=== PATIENT | male | born 1945 | race Caucasian/White ===

== ENCOUNTER 2017-02-06 18:35 | Inpatient (IN) | payer MEDICARE, OTHER ==
[~2017-02-06] VITALS: Ht 162.5 cm; Wt 95.3 kg
--- NOTE | ~2017-02-06 | PR ---
[place], [place] PROGRESS NOTE NAME: EMMA HARDWICK UNIT #: [id number] ROOM: 506 DOCTOR: MELISSA DUMONT MD,JOSHUA BIRTHDATE: [birth year] DOS: 02/10/2017 The patient was seen independently with [id number] encounter. Physical examination performed. All the labs were confirmed. The note done by the medical physiologist was approved. The assessment and management and the changes in the treatment recommendations were personally made. SUBJECTIVE: The patient has been noted with some symptoms of shortness breath, still described with mild cough without any sputum expectoration. Denies symptoms of chest pain. He was continuing Solu-Medrol 60 mg q. 8 h. as ordered by the primary care physician. OBJECTIVE: VITAL SIGNS: Temperature noted normal, respiratory rate 20, heart rate 80, blood pressure 150/52 this morning. The pulse oxygen saturation was noted on 2 L nasal cannula 94% saturation. HEENT: Shows chronic obesity. NECK: Supple. CARDIOVASCULAR: S1, S2 audible. LUNGS: Noted without any wheeze or crackles. Moderate general reduction in breath sounds bilaterally. ABDOMEN: Soft, nontender. LABORATORY DATA: CMP today, glucose was noted as mildly elevated and BUN and creatinine were normal. CBC: WBC count 18.6, hemoglobin 11.7, hematocrit 36.6, platelet count was normal with 81% segmented neutrophils. IMPRESSION: Leukocytosis. The patient currently remains on high-dose corticosteroids, Solu-Medrol 40 mg q. 8 h. 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 PLAN OF MANAGEMENT: Reduce the Solu-Medrol dose to 40 mg b.i.d. from today. Monitor respiratory status. Additional treatment changes need to be made based on progression of illness. The patient is receiving intravenous vancomycin at this time. The blood culture from 02/08/2017 showed no bacterial growth. Sputum culture is not collected since the patient is not expectorating much sputum. The increase of the WBC is most likely related to the use of the high-dose corticosteroids. Reduction of the dose might result in reduction and improvement of leukocytosis. [place], [place] PROGRESS NOTE NAME: EMMA HARDWICK ACC #: [id number] UNIT #: [id number] ROOM: 506 DOCTOR: JOSHUA PAPPAS MD BIRTHDATE: [birth year] JOSHUA TORRES MD CM:PNTRANS [id number] JOSHUA DUMONT MD 02/11/17311 interface
--- NOTE | ~2017-02-06 | PR ---
[place], [place] PROGRESS NOTE NAME: EMMA HARDWICK UNIT #: [id number] ROOM: 506 DOCTOR: JOVANNY SALAMANCA DO BIRTHDATE: [birth year] DOS: 02/11/2017 SUBJECTIVE: The patient was seen and examined this morning with Dr. Torres. The patient denies of any . The patient states that his shortness of breath has been improving. PHYSICAL EXAMINATION: VITAL SIGNS: Temperature 98.8, pulse 89, respiratory rate 20, blood pressure 159/77, pulse ox 98 on 2 liters nasal cannula. HEENT: Shows no changes. NECK: Supple. CARDIOVASCULAR: S1, S2 audible. LUNGS: Mild scattered wheezes noted. No rales or rhonchi. ABDOMEN: Soft, nontender, not distended. EXTREMITIES: Shows no edema. LABORATORY DATA: White cell count of 16.8, hemoglobin of 11.7, platelet of 286 ____. BUN of 23, creatinine of 1.01. Microbiology: Blood cultures on 02/06/2017 showed gram-positive cocci in pairs and clusters. Repeat blood cultures on 02/08/2017, preliminarily shows no bacterial growth. ASSESSMENT: 1. Acute exacerbation of chronic obstructive pulmonary disease. 2. Acute tracheobronchitis. 3. Gram-positive bacteremia. 4. Tobacco abuse. TREATMENT PLAN: 1. The patient can be continued on IV antibiotics, Solu-Medrol, DuoNeb treatments. The patient can be discharged from pulmonary perspective. The patient had an echo done, which was negative for vegetation and showed grade 1 diastolic dysfunction. 2. Repeat blood cultures to date preliminary shows no growth. 3. The patient was counseled on tobacco cessation. 4. The patient should follow up outpatient with Dr. Torres in 2 weeks post-discharge. JOVANNY SALAMANCA DO [place], [place] PROGRESS NOTE NAME: EMMA HARDWICK UNIT #: [id number] ROOM: 506 DOCTOR: JOVANNY SALAMANCA DO BIRTHDATE: [birth year] JOSHUA TORRES MD CM:PNRAUL [id number] JOVANNY SALAMANCA DO 02/11/17 1104 interface
--- NOTE | ~2017-02-06 | CON ---
[place], [place] REPORT OF CONSULTATION NAME: EMMA HARDWICK [facility] #: [id number] UNIT #: [id number] ROOM: 506 DOCTOR: JOSHUA PAPPAS MD BIRTHDATE: [birth year] DOS: 02/08/2017 CONSULTATION REQUESTED BY: Hospitalist services. REASON FOR CONSULTATION: Assess the patient for COPD and other pulmonary abnormalities. HISTORY OF PRESENT ILLNESS: This is a 71-year-old white male, unknown to me from the past. He has been admitted to the hospital under the care of Hospitalist services on 02/06/2017. The patient was admitted to the hospital. The patient was noted with having symptoms of increased shortness of breath with chest congestion and copious amount of sputum expectoration at home. The sputum expectoration was described sometimes as thick and yellowish in color and other time green. He does not have any symptoms of hemoptysis with that. Wheezing for the patient was also noted. Symptoms started after acute cold-like symptoms in the beginning. The patient has taken [id number] medications and other home medication, but not noted improvement in the symptoms. He has been currently treated for acute exacerbation of COPD. REVIEW OF SYSTEMS: CONSTITUTIONAL: Fatigue and tiredness. The patient noted symptoms of fever or chills. EYES: Denies any burning, redness, or tenderness. EARS, NOSE, THROAT: No sore throat, hoarseness, otalgia, postnasal drainage or epistaxis. GASTROINTESTINAL: Denies dysphagia, nausea, vomiting, diarrhea, abdominal pain, hematemesis, or melena. GENITOURINARY: Denies dysuria, suprapubic pain, or hematuria. SKIN: Denies any lesions or rashes. MUSCULOSKELETAL: Denies any acute joint pain, redness, or tenderness. Remaining systems were reviewed with the patient, they were noted all negative. PAST MEDICAL HISTORY: 1. The patient was noted with past history of chronic obstructive pulmonary disease. 2. Moderate obesity. 3. Essential hypertension. 4. Peripheral vascular disease. 5. Diet-controlled type 2 diabetes mellitus. 6. Vitamin D deficiency. 7. History of nicotine abuse. 8. History of BPH. SOCIAL HISTORY: The patient stated he is , has 2 children. Smoking noted since his teen for this patient about 2 packs of cigarettes per day. Denies any history of alcohol use or any illicit drug use. He has worked in the [employer] for 47.5 years until longterm. PAST SURGICAL HISTORY: [place], [place] REPORT OF CONSULTATION NAME: EMMA HARDWICK UNIT #: [id number] ROOM: 506 DOCTOR: MELISSA DUMONT MD,JOSHUA BIRTHDATE: [birth year] 1. Noted peripheral artery intervention. The patient has a stent placement. 2. EGD and colonoscopy. FAMILY HISTORY: The patient's father at unknown age and history was unknown by the patient. The mother at 79 years complication related to coronary artery disease. HOME MEDICATIONS: Listed at the time of admission, the medication reconciliation were noted as use of: 1. Aspirin 81 mg p.o. daily. 2. Flovent 250 mcg inhalation one inhalation b.i.d. 3. Proscar 5 mg daily. 4. Lisinopril 20 mg p.o. daily. 5. Metoprolol 50 mg p.o. daily. 6. Omeprazole 40 mg daily. 7. Simvastatin 20 mg p.o. daily. DRUG ALLERGY: No known drug allergies. PHYSICAL EXAMINATION: GENERAL: This is a 71-year-old white male who has been currently noted without any distress at the time of the assessment. VITAL SIGNS: The patient's height recorded by the nursing staff on admission with height of 5 feet 4 inches, weight of 210 pounds. The vital signs which were recorded shows temperature noted normal in the past 48 hours, respiratory rate range between 20-22, heart rate of 85-93, blood pressure 140/62-148/84. Pulse oxygen saturation of the patient noted on 3 liters 98% saturation on admission 93% saturation room air at rest. HEENT: Examination shows chronic obesity. Neck was supple. Head was atraumatic. Decreased posterior pharyngeal space. CARDIOVASCULAR: S1, S2 is audible. LUNGS: Noted with general reduction of breath sounds with expiratory wheezing, no crackles. ABDOMEN: Soft, obese, nontender, bowel sounds present. EXTREMITIES: Shows chronic obesity without edema, clubbing, or cyanosis. CENTRAL NERVOUS SYSTEM: Cranial nerves 2-12 intact. No focal deficits. MUSCULOSKELETAL: No deformities. SKIN: Showed no lesions or rashes. LABORATORY DATA: Lactic acid on 02/06/2017 was normal. CMP of the patient on 02/06/2017 noted, glucose 121, BUN 27, creatinine was normal. AST was 41. Troponin was normal. CBC of the patient on 02/06/2017, hemoglobin 13.8, hematocrit 42.1, WBC count normal, platelet count was normal. CMP of the patient on 02/07/2017, BUN 27, creatinine was normal, glucose 158. Albumin 3.0. CBC on 02/07/2017, mild anemia, otherwise normal. CMP of the patient on 02/08/2017, glucose 185, BUN and creatinine was normal. CBC of the patient's WBC count 16.0 today, hemoglobin 11.6, hematocrit 35.1, platelet count of 276,000. The chest x-ray of the patient that was done, 2 views in the Emergency Room which was personally reviewed shows increased interstitial marking. The patient noted without any gross area of pulmonary infiltration nodules or mass [place], [place] REPORT OF CONSULTATION NAME: EMMA HARDWICK UNIT #: [id number] ROOM: 506 DOCTOR: MELISSA DUMONT MD,JOSHUA BIRTHDATE: [birth year] lesions were noted. The chest x-ray was personally reviewed. CT scan of the chest, which was done without contrast on 02/07/2017 was personally reviewed, shows evidence of subcarinal and mediastinal lymphadenopathy noted with ____ noted at 1.7 cm in the subcarinal area. Calcification of the lymph are noted in the mediastinum for this patient as well as in the carinal area. The fullness of the right hilar area was also noted may be related to lymphadenopathy or other reasons, but because of lack of contrast cannot be clearly assessed. Increased interstitial markings for the patient was noted with minimal bronchiectasis in the lower lungs. Calcified granuloma noted in the right upper lung for this patient as well. Fatty infiltration of the liver for the patient was also noted. IMPRESSION: 1. The patient has been currently admitted to the hospital noted with acute exacerbation of chronic obstructive pulmonary disease with acute bronchitis with increased interstitial markings may be related to the air trapping. Other reason for the patient was unclear. 2. Lymphadenopathy calcification, most likely to past exposure and inhalation of the silica would be considered for this patient for that reason. 3. Rule out any lymphadenopathy in the right hilar area for this patient as well. 4. Possibility of a simple silicosis involving the lung for this patient would be considered as well. 5. Gram-positive cocci bacteremia noted on 1 out of 2 culture on 02/06/2017 as gram-positive cocci in pairs and clusters with possibility of contamination would be considered. PLAN OF MANAGEMENT: Solu-Medrol will be continued 60 mg q.8 hours which was decreased from 80 mg q.8 hours today. Bronchodilators will be continued. Sputum for Gram stain and culture. Continue use of the Mucinex uses a flutter valve. If the respiratory symptoms remain persistent considered fiberoptic bronchoscopy. Discontinue the IV Zosyn for the patient is not needed. Contamination of the blood culture will be considered for the patient, if the blood culture will be noted as a contaminant, certainly the vancomycin needs to be discontinued. If the patient's other antibiotic will be discontinued certainly he will be started on oral antibiotic at this time vancomycin ____ able to give coverage for the patient's gram-positive infection. Additional treatment changes needs to be made for this patient based on progression of the illness. Thanks for allowing me to participate in the care of this patient. [place], [place] REPORT OF CONSULTATION NAME: EMMA HARDWICK UNIT #: [id number] ROOM: 506 DOCTOR: JOSHUA PAPPAS MD BIRTHDATE: [birth year] JOSHUA TORRES MD CM:CONSTR:REPORT OF CONSULTATION 1053 02/09/17 0205 interface
--- NOTE | ~2017-02-06 | PR ---
[place], [place] PROGRESS NOTE NAME: EMMA HARDWICK [facility] #: [id number] UNIT #: [id number] ROOM: 506 DOCTOR: MELISSA DUMONT MD,JOSHUA BIRTHDATE: [birth year] DOS: 02/09/2017 SUBJECTIVE: The patient has been noted comfortable at this time, resting on the bed. The patient has not been noted any symptoms of chest pain or any abdominal pain. Cough has been noted for this patient, which has been decreasing gradually. Shortness of breath was also improving, but not completely resolved. OBJECTIVE: VITAL SIGNS: Normal temperature, respiratory rate 20, heart rate 79, blood pressure 136/50. Pulse oxygen saturation of the patient noted 2 liters nasal cannula 96% saturation. HEENT: Examination shows chronic obesity. NECK: Supple. CARDIOVASCULAR: S1, S2 audible. LUNGS: Scattered wheezing, no crackles. ABDOMEN: Soft, nontender. LABORATORY DATA: CBC this morning; WBC count 17.4, hemoglobin 11.6, hematocrit 36.5, platelet count was normal. CMP of this morning; glucose 199, BUN and creatinine was normal. AST and ALT and alkaline phosphatase were all noted with mild elevation. IMPRESSION: 1. 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 Respiratory symptoms have been gradually improving. 2. Abnormal liver function testing, etiology unclear. PLAN OF TREATMENT: The patient could be discharged home if necessary on oral medications and antibiotics from pulmonary standpoint. Outpatient followup to be established t post-discharge. Tobacco cessation was addressed with the patient. JOSHUA TORRES MD CM:PNTRANS [id number] JOSHUA DUMONT MD 02/10/17 0516 interface
--- NOTE | ~2017-02-06 | PR ---
[place], [place] PROGRESS NOTE [id number] UNIT #: [id number] ROOM: 506 DOCTOR: JOVANNY SALAMANCA DO BIRTHDATE: [birth year] DOS: 02/10/2017 The patient was seen and examined this morning. The patient remains comfortable at this time. The patient denies of any chest pain or abdominal pain. The patient says that his shortness of breath is improving. PHYSICAL EXAMINATION: VITAL SIGNS: Temperature 97.9, pulse 90, respiratory rate 22, blood pressure 175/66, pulse ox 95 on 2 liters nasal cannula. HEENT: Shows no changes. NECK: Supple. CARDIOVASCULAR: S1, S2 audible. LUNGS: Mild scattered wheezes noted. No crackles or rhonchi. ABDOMEN: Soft, nontender or nondistended. LABORATORY DATA: White cell count 18.6, hemoglobin 11.7, platelets 293,000. BUN 23, creatinine 1.01. ASSESSMENT: 1. 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 2. Acute tracheobronchitis, improving. 3. Abnormal liver function tests, etiology unclear. PLAN OF TREATMENT: 1. The patient could be discharged home on oral medications and antibiotics from pulmonary standpoint. 2. Outpatient followup to establish post discharge care. 3. Tobacco cessation. JOVANNY SALAMANCA DO [place], [place] PROGRESS NOTE NAME: EMMA HARDWICK UNIT #: [id number] ROOM: 506 DOCTOR: JOVANNY SALAMANCA DO BIRTHDATE: [birth year] JOSHUA TORRES MD CM:PNTRANS [id number] JOVANNY SALAMANCA DO 02/10/17 1538 interface
--- NOTE | ~2017-02-06 | PR ---
[place], [place] PROGRESS NOTE [id number] UNIT #: [id number] ROOM: 506 DOCTOR: MELISSA DUMONT MD,JOSHUA BIRTHDATE: [birth year] DOS: 02/11/2017 The patient was independently seen and examined with [id number] encounter today. Labs were reviewed. Physical examination performed. The assessment and management for this patient personally made. The note done by the medical office representative was approved. The patient has been showing gradual reduction and improvement in the respiratory symptoms. Leukocytosis slowly improving. Blood culture was noted with microguaiac species. The patient is getting antibiotics. The patient has been currently treated for acute exacerbation of chronic obstructive pulmonary disease and acute tracheobronchitis at this time and Gram-positive bacteremia. The decision of discharge will be deferred to the primary care team. JOSHUA TORRES MD CM:PNTRANS [id number] JOSHUA DUMONT MD 02/12/17 0047 interface
[~2017-02-06 18:35] MED LIST: ASPIRIN81 M1 PO; ATENOLOL25 MG PO; CIPROFLOXACIN500 MG PO; FLOMAX0.4 MG PO; LISINOPRIL AND1 TA2 PO; OMEPRAZOLE40 MG PO; PROSCAR5 M1 PO; SIMVASTATIN20 MG PO; VENTOLIN H0.09 MG/AC INH; VICODIN 5/500 505 MG PO; VIT D PO
[2017-02-06 18:50] VITALS: BP 173/87
[2017-02-06 19:34] VITALS: BP 147/81
[2017-02-06 20:27] VITALS: BP 173/81
[2017-02-06] MEDS ORDERED: DOXYCYCLINE100 M3 PO (20:50)
[2017-02-06] MEDS ORDERED: ALBUTEROL2.5 MG/0.5 INH (20:50)
[2017-02-06] MEDS ORDERED: TESSALON PERLE100 M1 PO (20:50)
[2017-02-06] MEDS ORDERED: PREDNISONE20 M1 PO (20:50)
[2017-02-06 21:23] VITALS: BP 179/61
[2017-02-06 21:33] LABS: HEMATOCRIT 42.1 % (42.0-52.0); HEMOGLOBIN 13.8 g/dl (14.0-18.0); MEAN CELL VOLUME 100.2 fl (80.0-94.0); MEAN CORPUSCULAR HGB 32.9 pg (27.0-31.0); MEAN CORPUSCULAR HGB CONC 32.8 g/dl (33.0-37.0); MEAN PLATELET VOLUME 10.6 fl (9.6-12.3); PLATELET COUNT AUTOMATED 262 10*3/uL (130-400); RED CELL DISTRI WIDTH 13.4 % (0-14.5); WHITE BLOOD COUNT 10.5 10*3/uL (4.8-10.8)
[2017-02-06 21:49] LABS: ALBUMIN 3.5 gm/dl (3.1-4.5); ALKALINE PHOSPHATASE 161 U/L (45-117); BUN 27 mg/dl (7-24); CHLORIDE 103 mmol/L (98-107); CREATININE 1.26 mg/dL (0.70-1.30); POTASSIUM 3.9 mmol/L (3.5-5.1); SGOT/AST 41 IU/L (3-35); SGPT/ALT 63 U/L (12-78); SODIUM 141 mmol/L (136-145); TOTAL PROTEIN 8.2 gm/dL (6.4-8.2)
[2017-02-06 21:55] LABS: PLATELET SUFFICIENCY NORMAL (NORMAL); TOTAL CELLS COUNTED 100 #CELLS; TROPONIN I < 0.015 ng/ml (<0.045)
[2017-02-06 21:56] LABS: POLYCHROMASIA SLIGHT
[2017-02-06 22:35] VITALS: BP 153/68
[2017-02-07] VITALS: BP 132/76
[2017-02-07 06:19] LABS: HEMATOCRIT 40.2 % (42.0-52.0); HEMOGLOBIN 13.2 g/dl (14.0-18.0); MEAN CORPUSCULAR HGB 32.8 pg (27.0-31.0); MEAN CORPUSCULAR HGB CONC 32.8 g/dl (33.0-37.0); MEAN PLATELET VOLUME 10.5 fl (9.6-12.3); PLATELET COUNT AUTOMATED 269 10*3/uL (130-400); RED BLOOD COUNT 4.02 10*6/uL (4.50-5.90); RED CELL DISTRI WIDTH 13.1 % (0-14.5); WHITE BLOOD COUNT 10.4 10*3/uL (4.8-10.8)
[2017-02-07 06:33] LABS: ALKALINE PHOSPHATASE 132 U/L (45-117); BUN 27 mg/dl (7-24); CHLORIDE 107 mmol/L (98-107); CHOLESTEROL 188 mg/dL (<200); CREATININE 1.13 mg/dL (0.70-1.30); HDL CHOLESTEROL 30 mg/dl (40-60); LDL CHOLESTEROL 130 mg/dL (9-159); MAGNESIUM 2.1 mg/dL (1.5-2.1); PHOSPHOROUS 2.6 mg/dL (2.5-4.9); POTASSIUM 3.9 mmol/L (3.5-5.1); SGOT/AST 27 IU/L (3-35); SGPT/ALT 50 U/L (12-78); SODIUM 140 mmol/L (136-145); TOTAL PROTEIN 7.3 gm/dL (6.4-8.2); TRIGLYCERIDES 139 mg/dl (<150); VLDL CHOLESTEROL 28 mg/dL (6-40)
[2017-02-07 06:34] LABS: FREE T4 1.03 ng/dl (0.76-1.46)
[2017-02-07 06:39] LABS: THYROID STIM HORMONE (HS) 0.274 uIU/ml (0.358-4.75)
[2017-02-07 07:00] LABS: ACT PARTIAL THROMBO TIME 26.1 SECONDS (20.8-31.5)
[2017-02-07 07:04] LABS: PLATELET SUFFICIENCY NORMAL (NORMAL); TOTAL CELLS COUNTED 100 #CELLS
[2017-02-07 08:00] VITALS: BP 148/84; BP 152/87
[2017-02-07 08:05] LABS: VITAMIN D, 25-HYDROXY 27.8 ng/mL (30-100)
[2017-02-07] MEDS ORDERED: ZESTRIL20 MG PO (10:04)
[2017-02-07] MEDS ORDERED: TOPROL XL50 M1 PO (10:05)
[2017-02-07] MEDS ORDERED: FLOVENT DISKU250 MCG INH (10:06)
[2017-02-07 12:00] VITALS: BP 146/78
[2017-02-07 16:00] VITALS: BP 169/60
[2017-02-07 20:00] VITALS: BP 159/83
[2017-02-08] VITALS: BP 140/84
[2017-02-08 05:52] LABS: HEMATOCRIT 35.1 % (42.0-52.0); HEMOGLOBIN 11.6 g/dl (14.0-18.0); MEAN CELL VOLUME 101.2 fl (80.0-94.0); MEAN CORPUSCULAR HGB 33.4 pg (27.0-31.0); MEAN PLATELET VOLUME 10.4 fl (9.6-12.3); PLATELET COUNT AUTOMATED 276 10*3/uL (130-400); RED BLOOD COUNT 3.47 10*6/uL (4.50-5.90); RED CELL DISTRI WIDTH 13.3 % (0-14.5); RETICULOCYTE % 2.08 % (0.50-2.50)
[2017-02-08 06:03] LABS: ALKALINE PHOSPHATASE 119 U/L (45-117); BUN 21 mg/dl (7-24); CHLORIDE 107 mmol/L (98-107); CREATININE 1.08 mg/dL (0.70-1.30); IRON 62 ug/dL (65-175); POTASSIUM 3.5 mmol/L (3.5-5.1); SGOT/AST 23 IU/L (3-35); SGPT/ALT 41 U/L (12-78); SODIUM 141 mmol/L (136-145); TOTAL IRON BINDING CAPACITY 230 ug/dl (250-450); TOTAL PROTEIN 6.8 gm/dL (6.4-8.2)
[2017-02-08 06:27] LABS: BASOPHILS 1 % (0-1); PLATELET SUFFICIENCY NORMAL (NORMAL); TOTAL CELLS COUNTED 100 #CELLS
[2017-02-08 08:00] VITALS: BP 105/65; BP 140/62
[2017-02-08 12:00] VITALS: BP 140/52
[2017-02-08 16:00] VITALS: BP 142/60
[2017-02-08 18:10] LABS: BILIRUBIN NEGATIVE (NEGATIVE); BLOOD NEGATIVE (NEGATIVE); CLARITY SL CLOUDY (CLEAR); COLOR YELLOW (YELLOW); GLUCOSE TRACE (NEGATIVE); KETONE NEGATIVE (NEGATIVE); LEUKO ESTERASE NEGATIVE (NEGATIVE); NITRITE NEGATIVE (NEGATIVE); PH 5.5 (5.0-9.0); UROBILINOGEN 0.2 E.U./dl (0.2-1.0)
[2017-02-08 18:26] LABS: BACTERIA 2+; RBC 0-2 rbc/hpf (0-2)
[2017-02-08 19:59] VITALS: BP 121/67
[2017-02-09] VITALS: BP 147/77
[2017-02-09 07:01] LABS: HEMATOCRIT 36.5 % (42.0-52.0); HEMOGLOBIN 11.6 g/dl (14.0-18.0); MEAN CELL VOLUME 103.7 fl (80.0-94.0); MEAN CORPUSCULAR HGB CONC 31.8 g/dl (33.0-37.0); MEAN PLATELET VOLUME 10.6 fl (9.6-12.3); NUCLEATED RED BLOOD CELL 0.1 % (0.0-0.0); PLATELET COUNT AUTOMATED 306 10*3/uL (130-400); RED BLOOD COUNT 3.52 10*6/uL (4.50-5.90); RED CELL DISTRI WIDTH 13.6 % (0-14.5); WHITE BLOOD COUNT 17.4 10*3/uL (4.8-10.8)
[2017-02-09 07:17] LABS: ALBUMIN 2.9 gm/dl (3.1-4.5); ALKALINE PHOSPHATASE 123 U/L (45-117); BUN 22 mg/dl (7-24); CHLORIDE 108 mmol/L (98-107); CREATININE 1.03 mg/dL (0.70-1.30); POTASSIUM 4.4 mmol/L (3.5-5.1); SGOT/AST 112 IU/L (3-35); SGPT/ALT 123 U/L (12-78); SODIUM 142 mmol/L (136-145); TOTAL PROTEIN 6.8 gm/dL (6.4-8.2)
[2017-02-09 07:37] LABS: TOTAL CELLS COUNTED 100 #CELLS
[2017-02-09 07:38] LABS: PLATELET SUFFICIENCY NORMAL (NORMAL)
[2017-02-09 08:00] VITALS: BP 136/50
[2017-02-09 12:00] VITALS: BP 172/72
[2017-02-09 16:00] VITALS: BP 184/77
[2017-02-09 20:00] VITALS: BP 184/76
[2017-02-10] VITALS: BP 157/56
[2017-02-10 06:55] LABS: HEMATOCRIT 36.6 % (42.0-52.0); HEMOGLOBIN 11.7 g/dl (14.0-18.0); MEAN CELL VOLUME 102.2 fl (80.0-94.0); MEAN CORPUSCULAR HGB 32.7 pg (27.0-31.0); MEAN PLATELET VOLUME 10.2 fl (9.6-12.3); NUCLEATED RED BLOOD CELL 0.2 % (0.0-0.0); PLATELET COUNT AUTOMATED 293 10*3/uL (130-400); RED BLOOD COUNT 3.58 10*6/uL (4.50-5.90); RED CELL DISTRI WIDTH 13.4 % (0-14.5); WHITE BLOOD COUNT 18.6 10*3/uL (4.8-10.8)
[2017-02-10 07:07] LABS: ALKALINE PHOSPHATASE 111 U/L (45-117); BUN 23 mg/dl (7-24); CHLORIDE 108 mmol/L (98-107); CREATININE 1.01 mg/dL (0.70-1.30); POTASSIUM 4.3 mmol/L (3.5-5.1); SGOT/AST 50 IU/L (3-35); SGPT/ALT 111 U/L (12-78); SODIUM 142 mmol/L (136-145); TOTAL PROTEIN 6.8 gm/dL (6.4-8.2)
[2017-02-10 07:55] LABS: PLATELET SUFFICIENCY NORMAL (NORMAL); TOTAL CELLS COUNTED 100 #CELLS
[2017-02-10 08:00] VITALS: BP 150/52
[2017-02-10 12:00] VITALS: BP 175/66
[2017-02-10 16:00] VITALS: BP 187/81
[2017-02-10 20:00] VITALS: BP 159/79
[2017-02-11] VITALS: BP 159/77
[2017-02-11 06:29] LABS: HEMATOCRIT 35.4 % (42.0-52.0); HEMOGLOBIN 11.7 g/dl (14.0-18.0); MEAN CELL VOLUME 100.6 fl (80.0-94.0); MEAN CORPUSCULAR HGB 33.2 pg (27.0-31.0); MEAN CORPUSCULAR HGB CONC 33.1 g/dl (33.0-37.0); MEAN PLATELET VOLUME 10.4 fl (9.6-12.3); NUCLEATED RED BLOOD CELL 0.2 10*3/uL (0.0-0.0); PLATELET COUNT AUTOMATED 286 10*3/uL (130-400); RED BLOOD COUNT 3.52 10*6/uL (4.50-5.90); RED CELL DISTRI WIDTH 13.5 % (0-14.5); WHITE BLOOD COUNT 16.8 10*3/uL (4.8-10.8)
[2017-02-11 07:37] LABS: PLATELET SUFFICIENCY NORMAL (NORMAL); TOTAL CELLS COUNTED 100 #CELLS
[2017-02-11 08:00] VITALS: BP 178/86
[2017-02-11] MEDS ORDERED: MUCINEX1200 M1 PO (11:57)
[2017-02-11] MEDS ORDERED: PREDNISONE10 MG PO (11:57)
[2017-02-11 12:00] VITALS: BP 172/77
== END 2017-02-11 13:50 | disposition home or self-care (01) | DRG 190 ==
LOC: ED 18:35 → 5E 21:18 → EDHOLD 21:18 → 5E 21:27
PROVIDERS: Hospitalist; Internal Medicine; Physician Assistant; Registered Nurse; ADMIT Internal Medicine
DX: J44.0 Chronic obstructive pulmonary disease with (acute) lower respiratory infection (principal); J18.9 Pneumonia, unspecified organism; E44.0 Moderate protein-calorie malnutrition; I11.0 Hypertensive heart disease with heart failure; R78.81 Bacteremia; I50.32 Chronic diastolic (congestive) heart failure; D50.9 Iron deficiency anemia, unspecified; F17.210 Nicotine dependence, cigarettes, uncomplicated; J84.10 Pulmonary fibrosis, unspecified; J44.1 Chronic obstructive pulmonary disease with (acute) exacerbation; K76.0 Fatty (change of) liver, not elsewhere classified; K29.70 Gastritis, unspecified, without bleeding; J20.9 Acute bronchitis, unspecified; E66.8 Other obesity; E78.00 Pure hypercholesterolemia, unspecified; R73.03 Prediabetes; I73.9 Peripheral vascular disease, unspecified; E83.51 Hypocalcemia; N40.0 Benign prostatic hyperplasia without lower urinary tract symptoms; Z99.81 Dependence on supplemental oxygen; Z79.82 Long term (current) use of aspirin; Z79.899 Other long term (current) drug therapy; Z83.3 Family history of diabetes mellitus; Z82.49 Family history of ischemic heart disease and other diseases of the circulatory system; Z68.36 Body mass index [BMI] 36.0-36.9, adult; Z71.6 Tobacco abuse counseling

== ENCOUNTER → 2017-03-11 | Outpatient (CLI) | payer MEDICARE, OTHER ==
[~2017-03-11] MED LIST changes: +ALBUTEROL2.5 MG/0.5 INH; +DOXYCYCLINE100 M3 PO; +FLOVENT DISKU250 MCG INH; +MUCINEX1200 M1 PO; +PREDNISONE10 MG PO; +PREDNISONE20 M1 PO; +TESSALON PERLE100 M1 PO; +TOPROL XL50 M1 PO; +ZESTRIL20 MG PO
[2017-03-11 09:46] LABS: HEMATOCRIT 41.9 % (42.0-52.0); HEMOGLOBIN 13.7 g/dl (14.0-18.0); MEAN CORPUSCULAR HGB CONC 32.7 g/dl (33.0-37.0); MEAN PLATELET VOLUME 10.2 fl (9.6-12.3); PLATELET COUNT AUTOMATED 277 10*3/uL (130-400); RED BLOOD COUNT 4.15 10*6/uL (4.50-5.90); RED CELL DISTRI WIDTH 13.8 % (0-14.5); WHITE BLOOD COUNT 6.7 10*3/uL (4.8-10.8)
[2017-03-11 10:15] LABS: PLATELET SUFFICIENCY NORMAL (NORMAL); TOTAL CELLS COUNTED 100 #CELLS
[2017-03-11 10:17] LABS: ALBUMIN 3.7 gm/dl (3.1-4.5); BUN 24 mg/dl (7-24); CHLORIDE 105 mmol/L (98-107); CHOLESTEROL 203 mg/dL (<200); HDL CHOLESTEROL 35 mg/dl (40-60); POTASSIUM 4.2 mmol/L (3.5-5.1); SGOT/AST 23 IU/L (3-35); SODIUM 143 mmol/L (136-145)
[2017-03-11 10:24] LABS: ALKALINE PHOSPHATASE 93 U/L (45-117); CREATININE 0.98 mg/dL (0.70-1.30); LDL CHOLESTEROL 109 mg/dL (9-159); SGPT/ALT 37 U/L (12-78); THYROID STIM HORMONE (HS) 0.811 uIU/ml (0.358-4.75); TOTAL PROTEIN 7.3 gm/dL (6.4-8.2); TRIGLYCERIDES 296 mg/dl (<150); VLDL CHOLESTEROL 59 mg/dL (6-40)
== END | disposition home or self-care (01) ==
LOC: LAB 09:15
PROVIDERS: Registered Nurse Flight
DX: I10 Essential (primary) hypertension (principal); J44.9 Chronic obstructive pulmonary disease, unspecified; E66.9 Obesity, unspecified; E55.9 Vitamin D deficiency, unspecified; Z79.899 Other long term (current) drug therapy; Z72.0 Tobacco use

== ENCOUNTER → 2017-07-12 | Outpatient (CLI) | payer MEDICARE, OTHER ==
[2017-07-12 11:20] LABS: BUN 23 mg/dl (7-24); CREATININE 1.13 mg/dL (0.70-1.30)
== END | disposition home or self-care (01) ==
LOC: LAB 10:45 → CT 11:00
PROVIDERS: Internal Medicine Critical Care Medicine
DX: J84.10 Pulmonary fibrosis, unspecified (principal); R59.9 Enlarged lymph nodes, unspecified; F17.200 Nicotine dependence, unspecified, uncomplicated

== ENCOUNTER → 2017-07-19 | Day surgery (SDC) | payer MEDICARE, OTHER ==
[~2017-07-19] VITALS: Ht 165.1 cm; Wt 94.3 kg
--- NOTE | ~2017-07-19 | PROC NOTE ---
[place], [place] PROCEDURE NOTE NAME: EMMA HARDWICK [facility] #: [id number] UNIT #: [id number] ROOM: DOCTOR: MELISSA DUMONT MD,JOSHUA BIRTHDATE: [birth year] DOS: 07/19/2017 PROCEDURE: Bronchoscopy with transbronchial biopsy and BAL specimen. PREOPERATIVE DIAGNOSIS: Bilateral pulmonary infiltration. POSTOPERATIVE DIAGNOSIS: Bilateral pulmonary infiltration. PROCEDURE DESCRIPTION: Informed consent was obtained from the patient. The patient brought to the OR. The patient was placed in supine position. Conscious sedation administered by the Anesthesia Department. After achieving proper sedation, airway introduced into the mouth. Large amount of redundant tissue noted in the oropharyngeal area. The patient confirm his history of obesity. Vocal cord seen yellowish in color moving symmetrically with the movements. The bronchoscope advanced to the vocal cord and patient's tracheal lumen. Tracheal lumen was identified and noted with minimal secretions, which were suctioned out. Right upper, right middle, right lower, left upper, lingular lower lobe bronchi were all examined noted patent except small mucoid secretions present. Suctioned out with the help of normal saline wash. The BAL specimen was obtained from the right lower lobe and the transbronchial biopsy three of them were done in the right middle lobe of the patient with fluoroscopy. Chest x-ray done post-procedure does not show any pneumothorax. Procedure was well tolerated without any complications of bleeding. The patient will be discharged home to be followed up in the office to discuss the results of the current bronchoscopy. JOSHUA TORRES MD CM:PROCNOTE:PROCEDURE NOTE [id number] JOSHUA DUMONT MD
[2017-07-19 08:30] VITALS: BP 166/74
[2017-07-19 09:27] VITALS: BP 169/90
[2017-07-19 09:41] VITALS: BP 123/76
[2017-07-19 09:57] VITALS: BP 158/68
[2017-07-19 10:34] VITALS: BP 165/73
[2017-07-19 11:44] LABS: BF LYMPHOCYTES 5 %; BF NEUTROPHILS 2 %
[2017-07-20 15:06] LABS: ACID FAST SMEAR Negative (.); ACID FAST SPEC PROCESSING Concentration (.)
== END | disposition home or self-care (01) ==
LOC: SDC 01:32
PROVIDERS: Internal Medicine Critical Care Medicine
DX: R91.8 Other nonspecific abnormal finding of lung field (principal); I10 Essential (primary) hypertension; Z82.49 Family history of ischemic heart disease and other diseases of the circulatory system

== ENCOUNTER → 2017-07-19 | Outpatient (CLI) | payer MEDICARE, OTHER ==
[2017-07-20 11:03] LABS: ANTI-DSDNA ANTIBODIES 096339 <1 IU/mL (0-9); ANTI-RNP ANTIBODIES 0.4 AI (0.0-0.9); ANTICHROMATIN ANTIBODIES <0.2 AI (0.0-0.9); ANTISCLERODERMA-70 AB <0.2 AI (0.0-0.9); SJOGREN ANTI-SS-A <0.2 AI (0.0-0.9); SJOREN AB, ANTI-SS-B <0.2 AI (0.0-0.9)
[2017-07-20 15:06] LABS: ATYPICAL PANCA <1:20 titer (Neg:<1:20); CYTOPLASMIC (C-ANCA) <1:20 titer (Neg:<1:20)
[2017-07-20 16:08] LABS: ANGIOTENSIN-CONVERTING ENZYME 9 U/L (14-82)
== END | disposition home or self-care (01) ==
LOC: LAB 07:53
PROVIDERS: Internal Medicine Critical Care Medicine
DX: J84.9 Interstitial pulmonary disease, unspecified (principal)

== ENCOUNTER → 2018-09-01 | Outpatient (CLI) | payer MEDICARE, OTHER ==
[2018-09-01 11:03] LABS: BASO % 0.4 % (0.0-1.0); EOS # 0.1 10*3/uL (0.0-0.4); HEMATOCRIT 40.4 % (42.0-52.0); HEMOGLOBIN 13.3 g/dl (14.0-18.0); LYMPH # 1.9 10*3/uL (1.3-4.4); LYMPH % 28.4 % (27.0-41.0); MEAN CELL VOLUME 103.6 fl (80.0-94.0); MEAN CORPUSCULAR HGB 34.1 pg (27.0-31.0); MEAN CORPUSCULAR HGB CONC 32.9 g/dl (33.0-37.0); MEAN PLATELET VOLUME 10.3 fl (9.6-12.3); MONO # 0.4 10*3/uL (0.1-1.0); MONO % 6.5 % (3.0-9.0); NEUT # 4.1 10*3/uL (2.3-7.9); NEUT % 60.9 % (47.0-73.0); PLATELET COUNT AUTOMATED 270 10*3/uL (130-400); RED CELL DISTRI WIDTH 13.2 % (0-14.5); WHITE BLOOD COUNT 6.8 10*3/uL (4.8-10.8)
[2018-09-01 11:35] LABS: ALBUMIN 4.1 gm/dl (3.1-4.5); ALKALINE PHOSPHATASE 91 U/L (45-117); BUN 35 mg/dl (7-24); CHLORIDE 107 mmol/L (98-107); CHOLESTEROL 195 mg/dL (<200); CREATININE 1.18 mg/dL (0.70-1.30); HDL CHOLESTEROL 37 mg/dl (40-60); LDL CHOLESTEROL 118 mg/dL (9-159); POTASSIUM 3.8 mmol/L (3.5-5.1); SGOT/AST 17 IU/L (3-35); SGPT/ALT 26 U/L (12-78); SODIUM 139 mmol/L (136-145); TOTAL PROTEIN 8.1 gm/dL (6.4-8.2); TRIGLYCERIDES 200 mg/dl (<150); VLDL CHOLESTEROL 40 mg/dL (6-40)
== END | disposition home or self-care (01) ==
LOC: LAB 10:29
PROVIDERS: Registered Nurse Flight
DX: E78.5 Hyperlipidemia, unspecified (principal); R73.03 Prediabetes; I10 Essential (primary) hypertension; E55.9 Vitamin D deficiency, unspecified

== ENCOUNTER → 2019-04-27 | Outpatient (CLI) | payer MEDICARE, OTHER ==
[2019-04-28 09:09] LABS: PROSTATE SPECIFIC AG FREE 0.86 ng/mL; PROSTATE SPECIFIC AG, SERUM 2.7 ng/mL (0.0-4.0)
== END | disposition home or self-care (01) ==
LOC: LAB 11:13
PROVIDERS: Urology
DX: R97.20 Elevated prostate specific antigen [PSA] (principal)

== ENCOUNTER → 2020-01-23 | Outpatient (CLI) | payer MEDICARE, OTHER ==
[2020-01-23 10:28] LABS: HEMATOCRIT 43.1 % (42.0-52.0); MEAN CELL VOLUME 100.9 fl (80.0-94.0); MEAN CORPUSCULAR HGB 32.8 pg (27.0-31.0); MEAN CORPUSCULAR HGB CONC 32.5 g/dl (33.0-37.0); MEAN PLATELET VOLUME 10.3 fl (9.6-12.3); RED BLOOD COUNT 4.27 10*6/uL (4.50-5.90); RED CELL DISTRI WIDTH 13.2 % (0-14.5); WHITE BLOOD COUNT 7.1 10*3/uL (4.8-10.8)
[2020-01-23 10:56] LABS: ALBUMIN 4.2 gm/dl (3.1-4.5); ALKALINE PHOSPHATASE 111 U/L (45-117); BUN 32 mg/dl (7-24); CHLORIDE 105 mmol/L (98-107); CHOLESTEROL 154 mg/dL (<200); CREATININE 1.23 mg/dL (0.70-1.30); HDL CHOLESTEROL 33 mg/dl (40-60); LDL CHOLESTEROL 79 mg/dL (9-159); POTASSIUM 3.9 mmol/L (3.5-5.1); SGOT/AST 20 IU/L (3-35); SGPT/ALT 28 U/L (12-78); SODIUM 139 mmol/L (136-145); TOTAL PROTEIN 8.6 gm/dL (6.4-8.2); TRIGLYCERIDES 212 mg/dl (<150); VLDL CHOLESTEROL 42 mg/dL (6-40)
== END | disposition home or self-care (01) ==
LOC: LAB 09:46
PROVIDERS: ATTEND Registered Nurse Flight
DX: I10 Essential (primary) hypertension (principal); E11.9 Type 2 diabetes mellitus without complications; E78.5 Hyperlipidemia, unspecified

== ENCOUNTER → 2020-03-06 | Outpatient (CLI) | payer MEDICARE, OTHER ==
[~2020-03-06] MED LIST changes: +CLOPIDOGREL75 MG PO; +GLUCOPHAGE500 M1 PO; +HYDROCHLOROTHIA25 M1 PO; +LISINOPRIL40 MG PO; +LOPID600 M1 PO; +NORVASC10 MG PO; -SIMVASTATIN20 MG PO; +SIMVASTATIN40 MG PO; -ZESTRIL20 MG PO; +ZOFRAN4 MG PO
== END | disposition home or self-care (01) ==
LOC: US 10:52
PROVIDERS: ATTEND Nurse Practitioner Family
DX: M71.22 Synovial cyst of popliteal space [Baker], left knee (principal); M21.862 Other specified acquired deformities of left lower leg; I73.9 Peripheral vascular disease, unspecified; R60.0 Localized edema

== ENCOUNTER → 2020-03-26 | Outpatient (CLI) | payer MEDICARE, OTHER ==
--- NOTE | 2020-03-26 10:23 | NUR ---
INFORMED CONSENT SIGNED FOR LEXISCAN STRESS TEST WITH DR. REYNOSO. RESTING EKG NSR, HR 64, BP 126/60. PULSE OX 96% AND LUNGS CLEAR. COMPLETED ONE MINUTE OF A LEXISCAN PROTOCOL RECEIVING LEXISCAN 0.4MG OVER 10 SECONDS. RARE PVC NOTED WITH NO ST CHANGES. PT HAD NO C/O. LAST RECOVERY HR 90, BP 126/58. WAITING NUCLEAR SCANNING IN STABLE CONDITION.
== END | disposition home or self-care (01) ==
LOC: CARD 03-19 08:30
PROVIDERS: ATTEND Internal Medicine Cardiovascular Disease
DX: I35.8 Other nonrheumatic aortic valve disorders (principal); I05.8 Other rheumatic mitral valve diseases; I10 Essential (primary) hypertension; R53.81 Other malaise; I70.0 Atherosclerosis of aorta

== ENCOUNTER 2020-05-10 10:28 | Emergency (ER) | payer MEDICARE, OTHER ==
[~2020-05-10] VITALS: Ht 162.5 cm; Wt 87.1 kg
[~2020-05-10 10:28] MED LIST changes: -ZOFRAN4 MG PO
[2020-05-10] MEDS ORDERED: ZOFRAN4 MG PO (13:08)
== END 2020-05-10 13:15 | disposition home or self-care (01) ==
LOC: ED 10:28
DX: U07.1 COVID-19 (principal); J18.9 Pneumonia, unspecified organism; J44.9 Chronic obstructive pulmonary disease, unspecified; I50.9 Heart failure, unspecified; I11.0 Hypertensive heart disease with heart failure; E78.00 Pure hypercholesterolemia, unspecified; Z79.899 Other long term (current) drug therapy; Z79.82 Long term (current) use of aspirin; Z72.0 Tobacco use

== ENCOUNTER → 2020-09-25 | Outpatient (CLI) | payer MEDICARE, OTHER ==
[~2020-09-25] MED LIST changes: +ZOFRAN4 MG PO
== END | disposition home or self-care (01) ==
LOC: LAB 09:30
PROVIDERS: ATTEND Urology
DX: R97.20 Elevated prostate specific antigen [PSA] (principal)

== ENCOUNTER → 2020-11-04 | Outpatient (CLI) | payer MEDICARE, OTHER ==
[2020-11-05 13:07] LABS: PROSTATE SPECIFIC AG FREE 0.89 ng/mL; PROSTATE SPECIFIC AG, SERUM 3.7 ng/mL (0.0-4.0)
== END | disposition home or self-care (01) ==
LOC: LAB 09:04
PROVIDERS: ATTEND Urology
DX: R97.20 Elevated prostate specific antigen [PSA] (principal)

== ENCOUNTER → 2020-11-27 | Outpatient (CLI) | payer MEDICARE, OTHER ==
[2020-11-27 10:01] LABS: ALBUMIN 4.1 gm/dl (3.1-4.5); ALKALINE PHOSPHATASE 81 U/L (45-117); BUN 27 mg/dl (7-24); CHLORIDE 109 mmol/L (98-107); CHOLESTEROL 162 mg/dL (<200); LDL CHOLESTEROL 86 mg/dL (9-159); POTASSIUM 3.8 mmol/L (3.5-5.1); SGOT/AST 17 IU/L (3-35); SGPT/ALT 22 U/L (12-78); SODIUM 139 mmol/L (136-145); TRIGLYCERIDES 216 mg/dl (<150)
== END | disposition home or self-care (01) ==
LOC: LAB 09:27
PROVIDERS: ATTEND Nurse Practitioner Family
DX: E11.9 Type 2 diabetes mellitus without complications (principal); E78.5 Hyperlipidemia, unspecified

== ENCOUNTER → 2021-06-25 | Outpatient (CLI) | payer MEDICARE, OTHER | END | disposition home or self-care (01) | LOC: CT 12:29 | PROVIDERS: ATTEND Internal Medicine Critical Care Medicine | DX: R91.8 Other nonspecific abnormal finding of lung field (principal); I25.10 Atherosclerotic heart disease of native coronary artery without angina pectoris; J43.9 Emphysema, unspecified ==

== ENCOUNTER 2022-03-28 11:06 | Emergency (ER) | payer MEDICARE, OTHER ==
[~2022-03-28] VITALS: Ht 162.5 cm; Wt 94.8 kg
[2022-03-28] MEDS ORDERED: ZITHROMAX250 MG PO (12:13)
[2022-03-28] MEDS ORDERED: MUCINEX1200 M1 PO (12:14)
== END 2022-03-28 12:30 | disposition home or self-care (01) ==
LOC: ED 11:06
DX: J18.9 Pneumonia, unspecified organism (principal); J44.9 Chronic obstructive pulmonary disease, unspecified; Z79.899 Other long term (current) drug therapy; Z98.890 Other specified postprocedural states; F17.200 Nicotine dependence, unspecified, uncomplicated

== ENCOUNTER 2022-08-25 15:24 | Emergency (ER) | payer MEDICARE, OTHER ==
[~2022-08-25] VITALS: Ht 172.7 cm; Wt 90.7 kg
[~2022-08-25 15:24] MED LIST changes: +ZITHROMAX250 MG PO
[2022-08-25] MEDS ORDERED: CEPHALEXIN500 M1 PO (16:06)
== END 2022-08-25 16:10 | disposition home or self-care (01) ==
LOC: ED 15:24
DX: L02.416 Cutaneous abscess of left lower limb (principal); I10 Essential (primary) hypertension; E11.9 Type 2 diabetes mellitus without complications; K21.9 Gastro-esophageal reflux disease without esophagitis; E78.5 Hyperlipidemia, unspecified; Z98.42 Cataract extraction status, left eye; Z98.41 Cataract extraction status, right eye; Z88.8 Allergy status to other drugs, medicaments and biological substances; Z98.890 Other specified postprocedural states; Z72.0 Tobacco use

== ENCOUNTER 2022-10-01 15:43 | Emergency (ER) | payer MEDICARE, OTHER ==
[~2022-10-01] VITALS: Ht 157.4 cm; Wt 92.5 kg
[~2022-10-01 15:43] MED LIST changes: +CEPHALEXIN500 M1 PO
[2022-10-01 16:21] LABS: BASO % 0.5 % (0.0-1.0); EOS # 0.1 10*3/uL (0.0-0.4); EOS % 0.8 % (1.0-4.0); HEMATOCRIT 43.3 % (42.0-52.0); LYMPH # 1.7 10*3/uL (1.3-4.4); LYMPH % 22.3 % (27.0-41.0); MEAN CORPUSCULAR HGB CONC 33.7 g/dl (33.0-37.0); MEAN PLATELET VOLUME 9.7 fl (9.6-12.3); MONO # 0.5 10*3/uL (0.1-1.0); MONO % 7.1 % (3.0-9.0); NEUT # 4.9 10*3/uL (2.3-7.9); NEUT % 66.5 % (47.0-73.0); PLATELET COUNT AUTOMATED 249 10*3/uL (130-400); RED BLOOD COUNT 4.42 10*6/uL (4.50-5.90); RED CELL DISTRI WIDTH 12.9 % (0-14.5); WHITE BLOOD COUNT 7.4 10*3/uL (4.8-10.8)
[2022-10-01 16:33] LABS: ACT PARTIAL THROMBO TIME 33.9 SECONDS (20.0-32.1)
[2022-10-01 16:42] LABS: BILIRUBIN Negative (Negative); BLOOD Negative (Negative); CLARITY Clear (Clear); COLOR Yellow (Yellow); GLUCOSE Negative (Negative); KETONE Negative (Negative); LEUKO ESTERASE 3+ (Negative); NITRITE Negative (Negative); SPECIFIC GRAVITY 1.015 (1.001-1.030); UROBILINOGEN 0.2 E.U./dl (0.0-1.0)
[2022-10-01 16:47] LABS: ALKALINE PHOSPHATASE 96 U/L (46-116); BUN 15 mg/dl (9-23); CHLORIDE 104 mmol/L (98-107); LIPASE 35 U/L (12-53); POTASSIUM 3.3 mmol/L (3.4-5.1); SGPT/ALT 21 U/L (10-49); TOTAL PROTEIN 7.5 gm/dL (6.0-8.0)
[2022-10-01 17:04] LABS: BACTERIA 2+; MUCOUS 1+; WBC 16-20 wbc/hpf (0-5)
[2022-10-01] MEDS ORDERED: CIPRO500 MG PO (17:09)
== END 2022-10-01 17:12 | disposition home or self-care (01) ==
LOC: ED 15:43
PROVIDERS: Emergency Medicine
DX: N39.0 Urinary tract infection, site not specified (principal); F17.200 Nicotine dependence, unspecified, uncomplicated; Z79.899 Other long term (current) drug therapy; Z79.82 Long term (current) use of aspirin

== ENCOUNTER → 2023-10-17 | Outpatient (CLI) | payer MEDICARE, OTHER ==
[~2023-10-17] MED LIST changes: +CIPRO500 MG PO
== END | disposition home or self-care (01) ==
LOC: LAB 09:16
PROVIDERS: ATTEND Urology
DX: R97.20 Elevated prostate specific antigen [PSA] (principal)

== ENCOUNTER 2024-01-07 12:48 | Emergency (ER) | payer MEDICARE, OTHER ==
[~2024-01-07] VITALS: Ht 162.5 cm; Wt 90.7 kg
[2024-01-07] MEDS ORDERED: VITAMIN D350 MCG PO (12:59)
[2024-01-07] MEDS ORDERED: METOPROLOL SUC100 M1 PO (13:00)
[2024-01-07] MEDS ORDERED: OLMESARTAN 40 MG PO (13:00)
[2024-01-07 13:53] LABS: BASO % 0.6 % (0.0-1.0); EOS # 0.1 10*3/uL (0.0-0.4); EOS % 0.9 % (1.0-4.0); HEMATOCRIT 43.1 % (42.0-52.0); LYMPH # 1.9 10*3/uL (1.3-4.4); LYMPH % 26.7 % (27.0-41.0); MEAN CELL VOLUME 101.2 fl (80.0-94.0); MEAN CORPUSCULAR HGB 33.8 pg (27.0-31.0); MEAN CORPUSCULAR HGB CONC 33.4 g/dl (33.0-37.0); MEAN PLATELET VOLUME 9.6 fl (9.6-12.3); MONO # 0.5 10*3/uL (0.1-1.0); MONO % 7.1 % (3.0-9.0); NEUT # 4.4 10*3/uL (2.3-7.9); PLATELET COUNT AUTOMATED 202 10*3/uL (130-400); RED BLOOD COUNT 4.26 10*6/uL (4.50-5.90); RED CELL DISTRI WIDTH 13.2 % (0-14.5)
[2024-01-07 14:12] LABS: BUN 24 mg/dl (9-23); CHLORIDE 108 mmol/L (98-107); POTASSIUM 3.9 mmol/L (3.4-5.1)
[2024-01-07 14:25] LABS: ACT PARTIAL THROMBO TIME 30.5 SECONDS (20.0-32.1)
[2024-01-07] MEDS ORDERED: Ketorolac Tromethamine 15 MG/ML VIAL IM ONE (16:05)
== END 2024-01-07 16:18 | disposition home or self-care (01) ==
LOC: ED 12:48
PROVIDERS: Internal Medicine
DX: M94.0 Chondrocostal junction syndrome [Tietze] (principal); I10 Essential (primary) hypertension; E78.5 Hyperlipidemia, unspecified; E11.9 Type 2 diabetes mellitus without complications; K21.9 Gastro-esophageal reflux disease without esophagitis; F17.200 Nicotine dependence, unspecified, uncomplicated; Z98.890 Other specified postprocedural states